=== PATIENT | female | born 1955 | race Caucasian/White ===

== ENCOUNTER → 2019-09-14 | Outpatient (CLI) | payer OTHER | END | disposition home or self-care (01) | LOC: RAD 11:19 | DX: J45.998 Other asthma (principal); J44.9 Chronic obstructive pulmonary disease, unspecified ==

== ENCOUNTER 2019-11-01 10:02 | Outpatient (CLI) | payer OTHER | END 2019-11-01 10:28 | disposition home or self-care (01) | LOC: RAD 10:02 → SONOGRAMA 10:15 → RAD 10:28 | DX: M65.331 Trigger finger, right middle finger (principal); M15.8 Other polyosteoarthritis ==